=== PATIENT | male | born 1995 ===

== ENCOUNTER 2016-11-07 16:55 | Emergency (ER) | payer OTHER, MEDICAID ==
[2016-11-07 17:46] VITALS: BP 114/67
--- NOTE | 2016-11-07 18:14 | UC ---
Lower Extremity/Ankle HPI - HPI Summary HPI Summary: rolled left ankle playing basketball today---lateral ankle pain and swelling - History of Current Complaint Chief Complaint: UCLowerExtremity Stated Complaint: LEFT ANKLE INJURY Time Seen by Provider: 11/07/16 18:14 Hx Obtained From: Patient Onset/Duration: Sudden Onset, Lasting Days - 1, Still Present Severity Initially: Moderate Severity Currently: Moderate Pain Intensity: 5 Pain Scale Used: 0-10 Numeric Alleviating Factor(s): Rest, Elevation, Ice Able to Bear Weight: No - Allergies/Home Medications Allergies/Adverse Reactions: Allergies Allergy/AdvReac Type Severity Reaction Status Date / Time No Known Allergies Allergy Verified 11/07/16 17:45 Home Medications: Home Medications NK [No Home Medications Reported] 11/07/16 [History Confirmed 11/07/16] PMH/Surg Hx/FS Hx/Imm Hx Previously Healthy: Yes - Surgical History Surgical History: None - Family History Known Family History: Positive: None Family History: no reported cardio vascular issues in family lineage - Social History Occupation: Student Lives: With Family Alcohol Use: Occasionally Substance Use Type: Marijuana Smoking Status (MU): Never Smoked Tobacco Review of Systems Constitutional: Negative Skin: Negative Eyes: Negative ENT: Negative Respiratory: Negative Cardiovascular: Negative Gastrointestinal: Negative Genitourinary: Negative Motor: Negative, Decreased ROM - left ankle Neurovascular: Negative Musculoskeletal: Negative, Arthralgia - left lateral ankle pain, Edema - left ankle Neurological: Negative Psychological: Negative All Other Systems Reviewed And Are Negative: Yes Physical Exam Triage Information Reviewed: Yes Appearance: Well-Appearing, No Pain Distress, Well-Nourished Vital Signs: Initial Vital Signs Temp 98.6 F 11/07/16 17:42 Pulse 50 11/07/16 17:42 Resp 16 11/07/16 17:42 BP 114/67 11/07/16 17:42 Pulse Ox 100 11/07/16 17:42 Vital Signs Reviewed: Yes Eye Exam: Normal Eyes: Positive: Conjunctiva Clear ENT Exam: Normal ENT: Positive: Normal ENT inspection, Hearing grossly normal. Negative: Nasal congestion, Nasal drainage, Trismus, Muffled/hoarse voice Dental Exam: Normal Neck exam: Normal Neck: Positive: Supple, Nontender, No Lymphadenopathy Respiratory Exam: Normal Respiratory: Positive: Chest non-tender, Lungs clear, Normal breath sounds, No respiratory distress, No accessory muscle use Cardiovascular Exam: Normal Cardiovascular: Positive: RRR, Pulses Normal, Brisk Capillary Refill Musculoskeletal Exam: Normal Musculoskeletal: Positive: Strength Intact, ROM Intact, No Edema Neurological Exam: Normal Neurological: Positive: Alert, Muscle Tone Normal, Fatigued Psychological Exam: Normal Skin Exam: Normal Diagnostics - Radiology No standard instances Xray Interpretation: Positive (See Comments) - soft tissue swelling Radiology Interpretation Completed By: Radiologist Lower Extremity Course/Dx - Course Course Of Treatment: rice, pati, gel crutches, ibuprofen,.follow with otho in 4- 5 days - Differential Dx/Diagnosis Differential Diagnosis/HQI/PQRI: Contusion, Fracture (Closed), Sprain, Strain Provider Diagnoses: Left ankle sprain Discharge - Discharge Plan Condition: Stable Disposition: HOME Patient Education Materials: Ibuprofen (By mouth), Ankle Sprain (ED), Crutch Instructions (ED), Ankle Stirrup Splint (ED), RICE Therapy (ED) Referrals: Glen Cortes MD [Medical Doctor] - 5 Days Non Staff,Doctor [Primary Care Provider] -
--- NOTE | 2016-11-07 19:34 | RAD ---
Indication: Left ankle pain and injury. 3 views of left ankle demonstrate soft tissue swelling laterally. No fracture is noted. Ankle mortise is intact. IMPRESSION: Soft tissue swelling laterally without fracture.
== END 2016-11-07 20:04 | disposition home or self-care (01) ==
LOC: UCCORT 16:55
DX: S93.402A Sprain of unspecified ligament of left ankle, initial encounter (principal); X50.1XXA Overexertion from prolonged static or awkward postures, initial encounter; Y93.67 Activity, basketball; Y92.310 Basketball court as the place of occurrence of the external cause
CPT/HCPCS: 99203; G0463